=== PATIENT | female | born 1990 | race Caucasian/White ===

== ENCOUNTER 2022-03-03 15:14 | Emergency (ER) | payer BC ==
[2022-03-03 16:00] LABS: Bilirubin Neg (Negative); Blood, Urine 50 (Negative); Glucose, Urine (Dipstick) Normal (Negative); Ketone, Urine Negative (Negative); Leukocyte 25 (Negative); Nitrite Negative (Negative); Protein, Urine (Dipstick) Negative (Neg-Trace); Specific Gravity, Urine 1.005 (1.002-1.036); Urobilinogen Normal mg/dL (Less than 2); pH, Urine 6.5 (5.0-9.0)
[2022-03-03 16:03] LABS: Clarity Clear (Clear)
[2022-03-03 16:04] LABS: Pregnancy Test - Urine (BHCG) POSITIVE (Negative); Pregu Control Background? CLEAR/WHITE (CLR/WHITE); Pregu Control Bar Appear? YES (CONTROL BAR); Specific Gravity 1.005 (1.002-1.036)
[2022-03-03 16:06] LABS: Bacteria/HPF Rare-Few HPF (None Seen); Squamous Epithelial 0-3 HPF (0-3); WBC/HPF 0-3 HPF (0-3)
[2022-03-03 18:45] LABS: #Eosinphils 0.1 10x3/uL (0.0-0.5); #Monocytes 0.6 10x3/uL (0.0-1.1); #Neutrophils 7.2 10x3/uL (1.5-8.4); %Basophils 0.4 % (0.0-2.0); %Eosinophils 1.1 % (0.0-6.0); %Lymphocytes 16.9 % (18.0-47.0); %Monocytes 6.4 % (0.0-10.0); %Neutrophils 74.7 % (40.0-75.0); Hemoglobin 14.5 g/dL (12.0-15.5); Mean Corpuscular Hemoglobin 30.2 pg (27.0-33.0); Mean Platelet Volume 7.9 fl (7.4-10.4); Platelet Count 167 10x3/uL (150-450); RBC Distribution Width 12.5 % (11.5-14.5); White Blood Cell (WBC) Count 9.7 10x3/uL (3.5-10.5)
[2022-03-03 19:03] LABS: ALT (SGPT) 10 U/L (8-55); AST (SGOT) 18 U/L (5-34); Albumin 4.4 g/dL (3.5-5.0); Alkaline Phosphatase 51 U/L (40-110); Anion Gap 15 mmol/L (10-20); BUN (Urea Nitrogen) 4 mg/dL (7.0-18.7); Bilirubin, Total 0.5 mg/dL (0.2-1.2); Calc. Creatinine Clearance 0 mL/min (70-130); Carbon Dioxide 21 mmol/L (22-29); Chloride 105 mmol/L (98-107); Estimated GFR 117; Globulin 2.6 g/dL (2.4-3.5); Glucose 93 mg/dL (70-105); Potassium 4.1 mmol/L (3.5-5.1); Sodium 137 mmol/L (136-145)
== END 2022-03-03 20:31 | disposition home or self-care (01) ==
LOC: CSHERS 15:14
DX: O02.1 Missed abortion (principal); Z3A.12 12 weeks gestation of pregnancy
CPT/HCPCS: 36415; 80053; 81003; 81015; 81025; 84702; 85025

== ENCOUNTER 2022-03-09 10:17 | Day surgery (SDC) | payer BC ==
[2022-03-05 10:28] LABS: Hemoglobin 13.6 g/dL (12.0-15.5); Mean Corpuscular HGB CONC 34.8 g/dL (32.0-36.0); Mean Corpuscular Volume 86.1 fl (81.6-98.3); Mean Platelet Volume 8.1 fl (7.4-10.4); Platelet Count 163 10x3/uL (150-450); RBC Distribution Width 12.5 % (11.5-14.5); Red Blood Cell (RBC) Count 4.54 10x6/uL (3.90-5.03); White Blood Cell (WBC) Count 8.1 10x3/uL (3.5-10.5)
[2022-03-05 11:07] LABS: BHCG - Serum POSITIVE (NEGATIVE); Pregs Control Background? CLEAR/WHITE (CLR/WHITE); Pregs Control Bar Appear? YES (CONTROL BAR)
[2022-03-05 16:24] VITALS: BMI 27.2
[2022-03-09] MEDS ORDERED: Lidocaine 1% MPF 2 ML VIAL ONE (11:23)
[2022-03-09] MEDS ORDERED: Ketorolac Tromethamine 30 MG/ML VIAL ONE (11:51)
[2022-03-09] MEDS ORDERED: Midazolam HCl 2 mg/2 ml Vial ONE ×2 (11:51→11:53)
[2022-03-09] MEDS ORDERED: PROPOFOL 20 ML ONE (11:51)
[2022-03-09] MEDS ORDERED: Dexamethasone 20 MG/5 ML VIAL ONE (11:51)
[2022-03-09] MEDS ORDERED: Fentanyl 100 MCG/2 ML VIAL ONE (11:51)
[2022-03-09] MEDS ORDERED: Lidocaine 1% PF 5 ML VIAL ONE (11:51)
[2022-03-09] MEDS ORDERED: Ondansetron PF 4 MG/2 ML Vial ONE (11:51)
[2022-03-09] MEDS ORDERED: Doxycycline 100 MG in Sodium Chloride 0.9% 100 ML IVPB SCH (12:13)
== END 2022-03-09 14:20 | disposition home or self-care (01) ==
LOC: CSHSDC 10:17
PROVIDERS: ATTEND Obstetrics & Gynecology
PROC: 10D17ZZ Extraction of Products of Conception, Retained, Via Natural or Artificial Opening (ICD-10-PCS; principal; 2022-03-09)
DX: O02.1 Missed abortion (principal); I10 Essential (primary) hypertension; K21.9 Gastro-esophageal reflux disease without esophagitis; E03.9 Hypothyroidism, unspecified; Z79.82 Long term (current) use of aspirin; Z79.890 Hormone replacement therapy; Z79.899 Other long term (current) drug therapy; Z20.822 Contact with and (suspected) exposure to COVID-19
CPT/HCPCS: 84703; 85027; 86850; 86900; 86901; 87811; 88305; J1100; J1885; J2250; J2405; J2704; J3010; J3490

== ENCOUNTER 2023-05-03 07:05 | Inpatient (IN) | payer BC ==
[2023-05-03] MEDS ORDERED: Diphenoxylate HCl/Atropine Tablet PO PRN (07:20)
[2023-05-03] MEDS ORDERED: Zolpidem Tartrate 5 MG TAB PO PRN (07:20)
[2023-05-03] MEDS ORDERED: Promethazine HCl 25 MG/ML VIAL IM PRN ×2 (07:20→23:14)
[2023-05-03] MEDS ORDERED: Carboprost 250 MCG/ML AMP IM PRN (07:20)
[2023-05-03] MEDS ORDERED: NS w/ Oxytocin 30 units 500 ML IV SCH ×2 (07:20)
[2023-05-03] MEDS ORDERED: Ondansetron PF 4 MG/2 ML Vial IVP PRN ×2 (07:20→23:14)
[2023-05-03] MEDS ORDERED: Lidocaine 1% (PF) 30 ML VIAL SC PRN (07:20)
[2023-05-03] MEDS ORDERED: fentaNYL 50 mcg/mL 1 mL Vial SLOW IVP PRN (07:20)
[2023-05-03] MEDS ORDERED: Acetaminophen 500 MG TAB PO PRN (07:20)
[2023-05-03] MEDS ORDERED: HYDROcodone/Acetaminophen 5/325 mg Tablet PO PRN (07:20)
[2023-05-03] MEDS ORDERED: Ibuprofen 800 MG TAB PO PRN (07:20)
[2023-05-03] MEDS ORDERED: Misoprostol 200 MCG TAB PR PRN (07:20)
[2023-05-03] MEDS ORDERED: Penicillin G Potassium 5 MILL.UNITS in Sodium Chloride 0.9% 100 ML IVPB SCH (08:00)
[2023-05-03 08:23] LABS: Hematocrit 36.5 % (34.9-44.5); Hemoglobin 12.4 g/dL (12.0-15.5); Mean Corpuscular Hemoglobin 28.2 pg (27.0-33.0); Mean Corpuscular Volume 83.1 fl (81.6-98.3); Platelet Count 248 10x3/uL (150-450); Red Blood Cell (RBC) Count 4.39 10x6/uL (3.90-5.03); White Blood Cell (WBC) Count 11.1 10x3/uL (3.5-10.5)
[2023-05-03 08:45] LABS: ALT (SGPT) 13 U/L (8-55); AST (SGOT) 21 U/L (5-34); Albumin 3.4 g/dL (3.5-5.0); Alkaline Phosphatase 162 U/L (40-110); Anion Gap 16 mmol/L (10-20); BUN (Urea Nitrogen) 5 mg/dL (7.0-18.7); Bilirubin, Total 0.4 mg/dL (0.2-1.2); Calc. Creatinine Clearance 0 mL/min (70-130); Calcium 8.5 mg/dL (7.8-10.44); Carbon Dioxide 17 mmol/L (22-29); Chloride 108 mmol/L (98-107); Estimated GFR 114; Glucose 100 mg/dL (70-105); Potassium 3.7 mmol/L (3.5-5.1); Protein, Total 5.4 g/dL (6.0-8.3); Sodium 137 mmol/L (136-145)
[2023-05-03 09:01] LABS: HBSAg Index 0.17 S/CO (0-0.99); Hep B Surf Ag - L&D Non-Reactive S/CO (NonReactive)
[2023-05-03 09:03] LABS: Syphilis Antibody Nonreactive (Nonreactive); Syphilis Antibody Index 0.04 S/CO (<1.00 Non-Reactive)
[2023-05-03] MEDS: Misoprostol 100 MCG TAB VAG SCH ×4 (09:05→20:51)
[2023-05-03] MEDS ORDERED: Labetalol HCl 200 MG TAB PO SCH ×3 (09:39→21:00)
[2023-05-03 10:09] VITALS: BMI 32.1
[2023-05-03] MEDS ORDERED: Penicillin G 2.5 MILL.units 2.5 MILL.UNITS in Premix Bag 1 BAG IVPB SCH (12:00)
[2023-05-03] MEDS: Penicillin G 2.5 MILL.units 2.5 MILL.UNITS in Premix Bag 1 BAG IVPB SCH ×3 (16:29→22:50)
[2023-05-03] MEDS: Lactated Ringer's 1,000 ML IV SCH (19:09)
[2023-05-03] MEDS ORDERED: fentaNYL/Ropivacaine Epidural 100 ML ONE (21:38)
[2023-05-03] MEDS ORDERED: Moisturizing Cream (Eucerin) 113 GM JAR TOP PRN (23:14)
[2023-05-03] MEDS ORDERED: Lactated Ringer's 500 ML IV PRN (23:14)
[2023-05-03] MEDS ORDERED: Naloxone HCl 0.4 mg/ml Vial IVP PRN ×2 (23:14)
[2023-05-03] MEDS ORDERED: diphenhydrAMINE 50 MG/ML VIAL IVP PRN (23:14)
[2023-05-03] MEDS ORDERED: ePHEDrine Sulfate 50 MG/10 ML VIAL SLOW IVP PRN (23:14)
[2023-05-03] MEDS ORDERED: Acetaminophen 325 MG TAB PO PRN (23:14)
[2023-05-03] MEDS ORDERED: Communication Order-Pharmacy FS SCH (23:15)
[2023-05-03] MEDS ORDERED: fentaNYL 2 mcg/Ropivacaine 0.2% Epidural 100 ML CADD EPIDURAL SCH (23:15)
[2023-05-04] MEDS: Misoprostol 100 MCG TAB VAG SCH (00:47)
[2023-05-04] MEDS: Lactated Ringer's 1,000 ML IV SCH (00:48)
[2023-05-04] MEDS ORDERED: Methylergonovine 0.2 MG/ML VIAL ONE (01:20)
[2023-05-04] MEDS: hydrALAZINE 20 MG/ML VIAL SLOW IVP PRN ×2 (02:48→03:15)
[2023-05-04] MEDS ORDERED: NS w/ Oxytocin 30 units 500 ML ONE (03:07)
[2023-05-04] MEDS: Penicillin G 2.5 MILL.units 2.5 MILL.UNITS in Premix Bag 1 BAG IVPB SCH ×2 (03:22→03:23)
[2023-05-04] MEDS ORDERED: Benzocaine-Menthol 82.5 ML CAN TOP PRN (05:02)
[2023-05-04] MEDS ORDERED: Boostrix 0.5 ML (Tdap) VIAL (>/=7 yrs of age) IM ONE (05:02)
[2023-05-04] MEDS ORDERED: Promethazine HCl 25 MG/ML VIAL IM PRN (05:02)
[2023-05-04] MEDS ORDERED: diphenhydrAMINE 25 MG CAP PO PRN (05:02)
[2023-05-04] MEDS ORDERED: Milk Of Magnesia 30 ML UDCUP PO PRN (05:02)
[2023-05-04] MEDS ORDERED: hydrALAZINE 20 MG/ML VIAL SLOW IVP PRN (05:02)
[2023-05-04] MEDS ORDERED: Ondansetron PF 4 MG/2 ML Vial IVP PRN (05:02)
[2023-05-04] MEDS ORDERED: Lanolin Ointment 7 GM TUBE TOP PRN (05:02)
[2023-05-04] MEDS ORDERED: Bisacodyl 10 MG SUPP PR PRN (05:02)
[2023-05-04] MEDS ORDERED: Preparation H Ointment 28 GM TUBE PR PRN (05:02)
[2023-05-04] MEDS: Ferrous Sulfate 325 MG TAB PO SCH ×2 (09:41→18:10)
[2023-05-04] MEDS: HYDROcodone/Acetaminophen 5/325 mg Tablet PO PRN ×2 (09:56→20:18)
[2023-05-04] MEDS: Docusate 100 MG CAP PO SCH ×2 (09:57→22:23)
[2023-05-04] MEDS: Prenatal Vitamin 1 TAB PO SCH (09:57)
[2023-05-04] MEDS ORDERED: Labetalol HCl 200 MG TAB PO SCH (10:00)
[2023-05-04] MEDS: Labetalol HCl 200 MG TAB PO SCH ×2 (10:05→20:17)
[2023-05-04] MEDS: Ibuprofen 800 MG TAB PO SCH ×3 (10:09→20:17)
[2023-05-05] MEDS: HYDROcodone/Acetaminophen 5/325 mg Tablet PO PRN (01:38)
[2023-05-05] MEDS: Ibuprofen 800 MG TAB PO SCH ×2 (05:24→13:11)
[2023-05-05] MEDS: Ferrous Sulfate 325 MG TAB PO SCH (08:19)
[2023-05-05 08:22] VITALS: TEMP 98.4
[2023-05-05] MEDS: Prenatal Vitamin 1 TAB PO SCH (09:12)
[2023-05-05] MEDS: Docusate 100 MG CAP PO SCH (09:12)
[2023-05-05] MEDS: Labetalol HCl 200 MG TAB PO SCH (09:12)
[2023-05-05 16:52] VITALS: BP 138/76
== END 2023-05-05 18:45 | disposition home or self-care (01) | DRG 807 ==
LOC: CSHLD 07:05 → CSHPED 05-04 11:21
PROVIDERS: ADMIT Student in an Organized Health Care Education/Training Program; ATTEND Student in an Organized Health Care Education/Training Program
PROC: 10D07Z6 Extraction of Products of Conception, Vacuum, Via Natural or Artificial Opening (ICD-10-PCS; principal; 2023-05-04)
PROC: 0KQM0ZZ Repair Perineum Muscle, Open Approach (ICD-10-PCS; 2023-05-04)
PROC: 3E0P7VZ Introduction of Hormone into Female Reproductive, Via Natural or Artificial Opening (ICD-10-PCS; 2023-05-04)
PROC: 3E03329 Introduction of Other Anti-infective into Peripheral Vein, Percutaneous Approach (ICD-10-PCS; 2023-05-04)
PROC: 3E033XZ Introduction of Vasopressor into Peripheral Vein, Percutaneous Approach (ICD-10-PCS; 2023-05-04)
PROC: 3E033VJ Introduction of Other Hormone into Peripheral Vein, Percutaneous Approach (ICD-10-PCS; 2023-05-04)
DX: O10.92 Unspecified pre-existing hypertension complicating childbirth (principal); Z37.0 Single live birth; Z3A.38 38 weeks gestation of pregnancy; O99.824 Streptococcus B carrier state complicating childbirth; O76 Abnormality in fetal heart rate and rhythm complicating labor and delivery; O70.1 Second degree perineal laceration during delivery
CPT/HCPCS: 36415; 51702; 80053; 85027; 86780; 86850; 86900; 86901; 87340; J0360; J2001; J2540; J2590; J3010; J3490